=== PATIENT | female | born 1990 | race Caucasian/White ===

== ENCOUNTER 2018-06-17 16:25 | Observation (INO) | payer MEDICAID ==
[~2018-06-17] VITALS: Ht 165.1 cm; Wt 72.6 kg
[2018-06-17] MEDS ORDERED: TERBUTALINE SULFATE 1 MG/ML VIAL SUBCUT ONE ×2 (16:26→17:44)
[2018-06-17] MEDS ORDERED: BETAMET ACET/BETAMET NA PH 30 MG/5 ML VIAL IM ONE (18:00)
[2018-06-17 18:27] LABS: BILIRUBIN,URINE NEGATIVE (NEGATIVE); BLOOD, URINE 3+ (NEGATIVE); CLARITY/URINE SL CLOUDY (CLEAR); COLOR,URINE YELLOW (YELLOW); GLUCOSE,URINE NEGATIVE (NEGATIVE); KETONES,URINE 1+ (NEGATIVE); LEUKOCYTE ESTERASE ,URINE NEGATIVE (NEGATIVE); NITRITE, URINE NEGATIVE (NEGATIVE); PH,URINE 7.5 (5.0-8.0); PROTEIN URINE NEGATIVE (NEGATIVE); UROBILINOGEN,URINE 0.2 (0.2-1.0)
[2018-06-17 18:34] LABS: BACTERIA,URINE FEW /HPF (None Seen); RBC,URINE 50-80 /HPF (0-3)
[2018-06-17] MEDS: LR 1,000 ML IV SCH (23:10)
[2018-06-18] MEDS: LR 1,000 ML IV SCH (15:59)
[2018-06-18] MEDS ORDERED: BETAMET ACET/BETAMET NA PH 30 MG/5 ML VIAL IM ONE ×2 (18:51→19:35)
[2018-06-18] MEDS ORDERED: ROPIVACAINE 0.2% 100 ML ONE (19:14)
[2018-06-18] MEDS ORDERED: LR 1,000 ML IV ONE (20:29)
[2018-06-18] MEDS ORDERED: CEFAZOLIN 2 GM IVPB PREMIX 50 ML IV ONE (20:30)
== END 2018-06-18 20:15 | disposition home or self-care (01) ==
LOC: SPU 16:25
PROVIDERS: ADMIT Specialist; ATTEND Specialist
DX: O46.92 Antepartum hemorrhage, unspecified, second trimester (principal); Z3A.35 35 weeks gestation of pregnancy
CPT/HCPCS: 76805; 81000; 81002; 96360; 96361; 96372 ×2; G0378 ×2; J0702 ×2; J2795; J3105; J7120 ×2; 59899

== ENCOUNTER 2018-07-10 05:40 | Inpatient (IN) | payer MEDICAID ==
[~2018-07-10] VITALS: Ht 167.6 cm; Wt 75.7 kg
[2018-07-10] MEDS ORDERED: LR 1,000 ML IV SCH (07:19)
[2018-07-10] MEDS ORDERED: OXYTOCIN/0.9 % SODIUM CHLORIDE 1,000 ML IV SCH ×2 (07:19→14:46)
[2018-07-10] MEDS ORDERED: TERBUTALINE SULFATE 1 MG/ML VIAL SUBCUT ONE (07:30)
[2018-07-10] MEDS ORDERED: AMPICILLIN SODIUM 2 GM in NS 100 ML IV ONE (07:30)
[2018-07-10] MEDS ORDERED: NALBUPHINE HCL 10 MG/ML AMP IVP PRN (07:30)
[2018-07-10] MEDS ORDERED: AMPICILLIN SODIUM 2 GM VIAL ONE (07:44)
[2018-07-10 07:55] LABS: BASOPHILS % (AUTO) 0.5 % (0.0-2.0); EOSINOPHILS # (AUTO) 0.1 K/uL (0.0-0.4); EOSINOPHILS % (AUTO) 0.8 % (0.0-4.0); HEMOGLOBIN 11.8 g/dL (12.0-16.0); LYMPHOCYTES # (AUTO) 1.4 K/uL (1.0-5.5); LYMPHOCYTES % (AUTO) 21.2 % (20.5-51.5); MEAN CORPUSCULAR HEMOGLOBIN 29 pg (27-31); MEAN CORPUSCULAR HGB CONC 33 % (32-36); MEAN CORPUSCULAR VOLUME 89 fL (79.0-98.0); MONOCYTES # (AUTO) 0.4 K/uL (0.0-1.0); MONOCYTES % (AUTO) 6.1 % (1.7-9.3); NEUTROPHILS # (AUTO) 4.8 K/uL (1.8-7.7); NEUTROPHILS % (AUTO) 71.4 % (40.0-70.0); PLATELET COUNT (AUTO) 251 K/uL (130-430); RED BLOOD CELL COUNT(AUTO) 4.03 MIL/uL (4.2-6.2); RED CELL DISTRIBUTION WIDTH 13.8 % (9.0-15.0); WHITE BLOOD COUNT (AUTO) 6.7 K/uL (4.8-10.8)
[2018-07-10] MEDS ORDERED: fentaNYL CITRATE/PF 100 MCG/2 ML AMP ONE (09:05)
[2018-07-10] MEDS ORDERED: ROPIVACAINE 0.2% 100 ML ONE (09:06)
[2018-07-10] MEDS ORDERED: AMPICILLIN SODIUM 1 GM in NS 50 ML IV SCH (12:00)
[2018-07-10] MEDS ORDERED: OXYTOCIN/0.9 % SODIUM CHLORIDE 1,000 ML IV ONE (14:46)
[2018-07-10] MEDS ORDERED: DOCUSATE SODIUM 100 MG CAPSULE PO PRN (15:00)
[2018-07-10] MEDS ORDERED: ANUSOL 1 EA SUPP.RECT (PREPARATION H) RC PRN (15:00)
[2018-07-10] MEDS ORDERED: DERMOPLAST SPRAY TP PRN (15:00)
[2018-07-10] MEDS ORDERED: DIPH-TET-PERTUS Vaccine 0.5 ML VIAL (ADACEL) I.M. PRN (15:00)
[2018-07-10] MEDS ORDERED: HYDROCORTISONE 0.5%, 28.35 GM TOPICAL CREAM TP PRN (15:00)
[2018-07-10] MEDS ORDERED: MEASLES,MUMPS&RUBELLA VACC/PF 12500 UNIT/0.5 ML VIAL SUBQ PRN (15:00)
[2018-07-10] MEDS ORDERED: SENNOSIDES/DOCUSATE SODIUM 1 TAB TABLET(SENOKOT-S) PO PRN (15:00)
[2018-07-10] MEDS ORDERED: WITCH HAZEL LEAF 1 MED.PAD MED.PAD TP PRN (15:00)
[2018-07-10] MEDS ORDERED: LANOLIN 7 GM OINT. TP PRN (15:00)
[2018-07-10] MEDS ORDERED: RHO(D) IMMUNE GLOBULIN/MALTOSE 1500 UNITS/1.3 ML (WINHRO) IM PRN (15:00)
[2018-07-10 15:45] VITALS: BP_SYST 110
[2018-07-10] MEDS ORDERED: METHYLERGONOVINE MALEATE 0.2 MG/ML AMP IM ONE (17:00)
[2018-07-10] MEDS: IBUPROFEN 600 MG TABLET PO SCH (18:12)
[2018-07-10] MEDS ORDERED: TEMAZEPAM 15 MG CAPSULE PO PRN (21:00)
[2018-07-11] MEDS: IBUPROFEN 600 MG TABLET PO SCH ×4 (00:20→17:47)
[2018-07-11 06:27] LABS: BASOPHILS % (AUTO) 0.3 % (0.0-2.0); EOSINOPHILS # (AUTO) 0.1 K/uL (0.0-0.4); EOSINOPHILS % (AUTO) 0.8 % (0.0-4.0); HEMOGLOBIN 9.9 g/dL (12.0-16.0); LYMPHOCYTES # (AUTO) 1.7 K/uL (1.0-5.5); LYMPHOCYTES % (AUTO) 19.3 % (20.5-51.5); MEAN CORPUSCULAR HEMOGLOBIN 30 pg (27-31); MEAN CORPUSCULAR HGB CONC 33 % (32-36); MEAN CORPUSCULAR VOLUME 89 fL (79.0-98.0); MONOCYTES # (AUTO) 0.6 K/uL (0.0-1.0); MONOCYTES % (AUTO) 6.5 % (1.7-9.3); NEUTROPHILS # (AUTO) 6.2 K/uL (1.8-7.7); NEUTROPHILS % (AUTO) 73.1 % (40.0-70.0); PLATELET COUNT (AUTO) 217 K/uL (130-430); RED BLOOD CELL COUNT(AUTO) 3.37 MIL/uL (4.2-6.2); RED CELL DISTRIBUTION WIDTH 13.6 % (9.0-15.0); WHITE BLOOD COUNT (AUTO) 8.6 K/uL (4.8-10.8)
== END 2018-07-11 19:09 | disposition home or self-care (01) | DRG 560 ==
LOC: SPU 05:40 → OBSVTOIN 06:45
PROVIDERS: ADMIT Obstetrics & Gynecology; ATTEND Obstetrics & Gynecology
PROC: 10E0XZZ Delivery of Products of Conception, External Approach (ICD-10-PCS; principal; 2018-07-10)
PROC: 0KQM0ZZ Repair Perineum Muscle, Open Approach (ICD-10-PCS; 2018-07-10)
PROC: 0W8NXZZ Division of Female Perineum, External Approach (ICD-10-PCS; 2018-07-10)
PROC: 3E0R3BZ Introduction of Anesthetic Agent into Spinal Canal, Percutaneous Approach (ICD-10-PCS; 2018-07-10)
PROC: 00HU33Z Insertion of Infusion Device into Spinal Canal, Percutaneous Approach (ICD-10-PCS; 2018-07-10)
DX: O70.1 Second degree perineal laceration during delivery (principal); Z37.0 Single live birth; Z3A.38 38 weeks gestation of pregnancy
CPT/HCPCS: 36415; 85025; 86592; 86886; 86900; 86901; G0378; J0290; J2590; J2795; J3010